=== PATIENT | female | born 1995 | race Hispanic/Latino ===

== ENCOUNTER 2021-05-22 15:47 | Emergency (ER) | payer SELFPAY ==
[~2021-05-22] VITALS: Ht 157.5 cm; Wt 86.2 kg
[2021-05-22 18:13] VITALS: BP 108/60
[2021-05-22] MEDS ORDERED: HYDROCODONE/ACETAMINOPHEN 10/325 MG TAB PO ONE (18:45)
[2021-05-22 18:58] LABS: BASOPHILS % (AUTO) 0.2 % (0.0-5.0); EOSINOPHILS % (AUTO) 1.1 % (0.0-8.0); HEMATOCRIT 38.8 % (36-48); LYMPHOCYTES % (AUTO) 21.6 % (21.0-51.0); MEAN CORPUSCULAR HEMOGLOBIN 25.8 pg (27.0-33.0); MEAN CORPUSCULAR VOLUME 80.7 fL (79-99); MONOCYTES % (AUTO) 5.1 % (3.0-13.0); NEUTROPHILS % (AUTO) 71.8 % (40.0-77.0); PLATELET COUNT (AUTO) 288 K/uL (130-400); RED BLOOD CELL COUNT(AUTO) 4.81 MIL/uL (4.00-5.50); RED CELL DISTRIBUTION WIDTH 15.9 % (11.0-15.5); WHITE BLOOD COUNT (AUTO) 14.5 K/uL (4.8-10.8)
[2021-05-22 19:06] LABS: CREATININE 0.5 mg/dL (0.5-1.5); POTASSIUM 3.6 mmol/L (3.5-5.1)
[2021-05-22 19:11] LABS: ALBUMIN 3.7 g/dL (3.5-5.0); BILIRUBIN,TOTAL 0.2 mg/dL (0.2-1.0)
[2021-05-22 19:16] LABS: APPEARANCE,URINE Cloudy (CLEAR); BILIRUBIN,URINE Negative (NEGATIVE); COLOR,URINE Yellow (YELLOW); GLUCOSE, URINE (UA) Negative (NEGATIVE); KETONES,URINE Negative (NEGATIVE); LEUKOCYTE ESTERASE ,URINE Moderate (NEGATIVE); NITRATE,URINE Negative (NEGATIVE); OCCULT BLOOD,URINE Large (NEGATIVE); PH,URINE 6.5 (5.0-8.0); PROTEIN,URINE POS 2+ mg/dL (NEGATIVE)
[2021-05-22 19:25] LABS: BACTERIA,URINE Rare /HPF (None Seen); RBC,URINE 26-50 /HPF (0-1); SQUAMOUS EPITHELIAL CELL,UR Rare /HPF (0-2); WBC,URINE 26-50 /HPF (0-1)
[2021-05-22] MEDS ORDERED: CEFTRIAXONE 1G VIAL IM STA (20:21)
[2021-05-22] MEDS ORDERED: PHENAZOPYRIDINE HCL 200 MG TABLET PO STA (20:21)
[2021-05-22] MEDS ORDERED: PHEN-847 PO (20:27)
[2021-05-22] MEDS ORDERED: CEPH500B PO (20:27)
[2021-05-22] MEDS ORDERED: LIDOCAINE HCL-MPF 1% 2ML VIAL ONE (20:41)
[2021-05-22 21:19] VITALS: BP 112/72
== END 2021-05-22 16:40 | disposition home or self-care (01) ==
LOC: EDH 15:47
DX: N39.0 Urinary tract infection, site not specified (principal); R31.9 Hematuria, unspecified; Z90.710 Acquired absence of both cervix and uterus
CPT/HCPCS: 36415; 76856; 80053; 81001; 85025; 87077; 87088; 87186; 96372; 99284; J0696; J3490

== ENCOUNTER 2022-02-26 11:01 | Emergency (ER) | payer OTHER ==
[~2022-02-26] VITALS: Ht 157.5 cm; Wt 81.6 kg
[~2022-02-26 11:01] MED LIST: CEPH500B PO; PHEN-847 PO
[2022-02-26 11:05] VITALS: BP 116/70
[2022-02-26 12:08] LABS: APPEARANCE,URINE Cloudy (CLEAR); BILIRUBIN,URINE Negative (NEGATIVE); COLOR,URINE Dark Yellow (YELLOW); GLUCOSE, URINE (UA) Negative (NEGATIVE); KETONES,URINE 15 mg/dL (NEGATIVE); LEUKOCYTE ESTERASE ,URINE Large (NEGATIVE); NITRATE,URINE Negative (NEGATIVE); OCCULT BLOOD,URINE Negative (NEGATIVE); PH,URINE 7.5 (5.0-8.0); PROTEIN,URINE POS 1+ mg/dL (NEGATIVE)
[2022-02-26 12:10] LABS: BASOPHILS % (AUTO) 0.2 % (0.0-5.0); EOSINOPHILS % (AUTO) 0.2 % (0.0-8.0); HEMATOCRIT 40.8 % (36-48); MEAN CORPUSCULAR HEMOGLOBIN 26.8 pg (27.0-33.0); MEAN CORPUSCULAR HGB CONC 32.6 g/dL (32.0-36.0); MEAN CORPUSCULAR VOLUME 82.1 fL (79-99); MONOCYTES % (AUTO) 4.1 % (3.0-13.0); NEUTROPHILS % (AUTO) 76.3 % (40.0-77.0); PLATELET COUNT (AUTO) 327 K/uL (130-400); RED BLOOD CELL COUNT(AUTO) 4.97 MIL/uL (4.00-5.50); RED CELL DISTRIBUTION WIDTH 14.8 % (11.0-15.5); WHITE BLOOD COUNT (AUTO) 12.2 K/uL (4.8-10.8)
[2022-02-26 12:25] LABS: BACTERIA,URINE Few /HPF (None Seen); SQUAMOUS EPITHELIAL CELL,UR Many /HPF (0-2)
[2022-02-26 12:26] LABS: CREATININE 0.6 mg/dL (0.5-1.5); POTASSIUM 3.6 mmol/L (3.5-5.1)
[2022-02-26 12:31] LABS: ALBUMIN 3.9 g/dL (3.5-5.0); BILIRUBIN,TOTAL 0.5 mg/dL (0.2-1.0); TOTAL PROTEIN, SERUM 8.5 g/dL (6.0-8.3)
[2022-02-26] MEDS ORDERED: FLUCONAZOLE 100 MG TAB PO ONE ×2 (13:00→13:30)
[2022-02-26] MEDS ORDERED: CEFTRIAXONE 1G VIAL IM ONE (13:00)
[2022-02-26] MEDS ORDERED: AZITHROMYCIN 250 MG TABLET PO ONE (13:00)
[2022-02-26] MEDS ORDERED: LIDOCAINE HCL-MPF 1% 2ML VIAL ONE (13:21)
[2022-02-26] MEDS ORDERED: LIDOCAINE HCL-MPF 1% 2ML VIAL IV SCH (13:30)
[2022-02-26] MEDS ORDERED: FLUC150T PO (14:24)
[2022-02-26] MEDS ORDERED: METR375C2 PO (14:24)
[2022-02-26] MEDS ORDERED: DOXY-336 PO (14:24)
== END 2022-02-26 14:37 | disposition home or self-care (01) ==
LOC: EDH 11:01
DX: N39.0 Urinary tract infection, site not specified (principal); N73.9 Female pelvic inflammatory disease, unspecified; B37.9 Candidiasis, unspecified
CPT/HCPCS: 36415; 80053; 81001; 85025; 87088; 87210; 87486; 87797; 96372; 99284; J0696; J3490

== ENCOUNTER 2024-04-29 17:42 | Emergency (ER) | payer OTHER ==
[~2024-04-29] VITALS: Ht 160 cm; Wt 83.9 kg
[~2024-04-29 17:42] MED LIST changes: +AMOX500C2 PO; +DOXY100C61 PO; +FLUC150T PO; +METR375C2 PO
[2024-04-29 17:43] VITALS: BP 138/84; PULSE 88; RESP 20
[2024-04-29] MEDS: LIDOCAINE HCL 1% 20 ML VIAL INJ SCH (18:01)
[2024-04-29] MEDS: ACETAMINOPHEN 500 MG TABLET PO ONE (18:02)
[2024-04-29] MEDS: TETANUS/DIPHTHERIA TOXOID [ADULT] 0.5 ML VIAL IM ONE (18:03)
[2024-04-29] MEDS ORDERED: IBUP-2077 PO (18:57)
[2024-04-29] MEDS ORDERED: CEPH500B PO (18:57)
[2024-04-29] MEDS: CEPHALEXIN 500 MG CAPSULE PO SCH (19:01)
== END 2024-04-29 19:03 | disposition home or self-care (01) ==
LOC: EDH 17:42
DX: S81.011A Laceration without foreign body, right knee, initial encounter (principal); Z90.710 Acquired absence of both cervix and uterus; Y08.89XA Assault by other specified means, initial encounter; Y93.89 Activity, other specified; Y92.89 Other specified places as the place of occurrence of the external cause; Y99.8 Other external cause status
CPT/HCPCS: 12002; 73562; 90471; 90714

== ENCOUNTER 2025-04-03 11:01 | Emergency (ER) | payer SELFPAY ==
[~2025-04-03] VITALS: Ht 157.5 cm; Wt 83.9 kg
[~2025-04-03 11:01] MED LIST changes: +DOXY-466 PO; -DOXY100C61 PO; +IBUP-2077 PO
[2025-04-03 11:49] LABS: BASOPHILS # (AUTO) 0.02 K/uL (0.00-0.20); BASOPHILS % (AUTO) 0.2 % (0.0-5.0); EOSINOPHILS # (AUTO) 0.03 K/uL (0.00-0.70); EOSINOPHILS % (AUTO) 0.3 % (0.0-8.0); IMMATURE GRANULOCYTE ABSOLUTE 0.05 K/uL (0-1); LYMPHOCYTES # (AUTO) 0.6 K/uL (1.0-4.8); LYMPHOCYTES % (AUTO) 5.3 % (21.0-51.0); MEAN CORPUSCULAR HEMOGLOBIN 27.8 pg (27.0-33.0); MEAN CORPUSCULAR HGB CONC 33.2 g/dL (32.0-36.0); MEAN CORPUSCULAR VOLUME 83.7 fL (79-99); MONOCYTES # (AUTO) 0.2 K/uL (0.1-1.0); NEUTROPHILS # (AUTO) 9.9 K/uL (1.8-7.7); NEUTROPHILS % (AUTO) 91.7 % (40.0-77.0); PLATELET COUNT (AUTO) 304 K/uL (130-400); RED BLOOD CELL COUNT(AUTO) 5.26 MIL/uL (4.00-5.50); WHITE BLOOD COUNT (AUTO) 10.7 K/uL (4.8-10.8)
[2025-04-03 11:57] LABS: CREATININE 0.7 mg/dL (0.5-1.0); POTASSIUM 3.8 mmol/L (3.5-5.1)
[2025-04-03 12:01] LABS: BILIRUBIN,DIRECT 0.1 mg/dL (0.0-0.3); BILIRUBIN,TOTAL 0.4 mg/dL (0.2-1.0); TOTAL PROTEIN, SERUM 8.2 g/dL (6.0-8.3)
[2025-04-03 12:43] LABS: APPEARANCE,URINE CLOUDY (CLEAR); BILIRUBIN,URINE NEGATIVE (NEGATIVE); COLOR,URINE YELLOW (YELLOW); GLUCOSE, URINE (UA) NEGATIVE (NEGATIVE); KETONES,URINE 40 mg/dL (NEGATIVE); LEUKOCYTE ESTERASE ,URINE NEGATIVE Leu/uL (NEGATIVE); NITRATE,URINE NEGATIVE (NEGATIVE); PROTEIN,URINE 50 mg/dL (NEGATIVE)
[2025-04-03 12:46] LABS: ADD UA MICROSCOPIC YES
[2025-04-03] MEDS: ondanSETRON 4MG INJ IVP STA (12:46)
[2025-04-03] MEDS: 0.9%NACL 1000ML 1,000 ML IV STA (12:46)
[2025-04-03] MEDS: ketOROlac 15MG/ML VIAL (15MG/ML) IV ONE (12:46)
[2025-04-03] MEDS: FAMOTIDINE 20MG VIAL IV ONE (12:46)
[2025-04-03 12:52] LABS: AMPHET/METH SCREEN,URINE NEGATIVE (NEGATIVE); BARBITURATE SCREEN, URINE NEGATIVE (NEGATIVE); BENZODIAZEPINES SCREEN,URINE NEGATIVE (NEGATIVE); CANNABINOID SCREEN,URINE POSITIVE (NEGATIVE); COCAINE SCREEN,URINE NEGATIVE (NEGATIVE); OPIATE SCREEN,URINE NEGATIVE (NEGATIVE); PHENCYCLIDINE SCREEN,URINE NEGATIVE (NEGATIVE)
[2025-04-03 13:03] LABS: MUCUS,URINE FEW LPF (None Seen); SQUAMOUS EPITHELIAL CELL,UR MOD /HPF (0-2)
[2025-04-03] MEDS ORDERED: ONDA-243 PO (13:07)
--- NOTE | 2025-04-03 13:09 | ERN ---
ED Note History of Present Illness Stated Complaint: VOMITTING,CHILLS,EARACHE Chief Complaint: Abdominal Pain Time Seen by MD: 11:04 Time Seen by Midlevel: 11:06 Dictation: 29 y/o female c/o nausea and vomiting, and " reflux" onset last night. Allergies: Coded Allergies: No Known Drug Allergies (Verified Allergy, 02/07/14) Home Meds Active Scripts Ondansetron (Ondansetron Odt) 4 Mg Tab.rapdis, 4 MG PO Q6HPRN PRN for nausea for 3 Days, #12 TAB 0 Refills Prov:CHON KRISHNAMURTHY [employer] 04/03/25 Ibuprofen (Ibuprofen 800 mg Tab) 800 Mg Tab, 800 MG PO Q8H PRN for fever or pain, #30 TAB 0 Refills Prov:AMY HEATH [employer]GER 04/29/24 Cephalexin Monohydrate (Keflex) 500 Mg Cap, 500 MG PO TID for 7 Days, #21 CAP Prov:AMY HEATH NP 04/29/24 Amoxicillin (Amoxicillin) 500 Mg Capsule, 500 MG PO TID for 7 Days, #21 CAP Prov:LIZBETH COATS MD 08/10/22 Fluconazole (Diflucan) 150 Mg Tablet, 1 TAB PO every other day for 2 Days, #2 TAB 0 Refills Prov:JACKELYN FRANCE 02/26/22 Doxycycline Monohydrate (Doxycycline Monohydrate) 100 Mg Capsule, 1 CAP PO BID for 10 Days, #20 CAP 0 Refills Prov:JACKELYN FRANCE 02/26/22 Metronidazole (Flagyl) 375 Mg Capsule, 500 MG PO TID for 7 Days, #21 CAP Prov:JACKELYN FRANCE 02/26/22 Phenazopyridine HCl (Pyridium) 200 Mg Tab, 200 MG PO TIDPC, #9 TAB TAKE WITH FOOD TO PREVENT STOMACH UPSET. Prov:JACKELYN FRANCE 05/22/21 Cephalexin Monohydrate (Keflex) 500 Mg Cap, 500 MG PO TID for 7 Days, #21 CAP Prov:JACKELYN FRANCE 05/22/21 Past Medical History Past Medical History: Diabetes-Type II Additional Past Medical Hx: Obesity Surgical History: Hysterectomy, Family History: Negative Social History: Negative History: Not Applicable Review of System Dictation Constitutional: Negative for fever,chills, and weight loss Eyes: Negative for injury, pain,redness, and discharge ENT: Negative for injury,pain or swelling Cardiovascular: Negative for chest pain, palpitations, and edema Respiratory: Negative for shortness of breath, cough, and wheezing, Abdomen/GI: Negative for abdominal pain, nausea, vomiting, no diarrhea Back: Negative for injury and pain : Negative for injury, bleeding and discharge MS/Extremity: Negative for injury and deformity Skin: Negative for rash, and discoloration Neuro: Negative for headache, weakness, numbness, tingling, and seizure Psych: Negative for suicide ideation, homicidal ideation, and hallucinations Review of Systems: was completed Initial Vital Sign VS Vital Signs Date Time Temp Pulse Resp B/P (MAP) Pulse Ox O2 Delivery O2 Flow Rate FiO2 04/03/25 11:06 98.1 93 16 127/64 96 Room Air 0 04/03/25 12:31 21 Physical Exam Dictation General: awake, alert, NAD Head/Face: Normocephalic, atraumatic Eyes: PERRL, EOMI, vision at baseline ENT: oral cavity clear, TMs clear, no signs of infection Neck: Trachea midline, supple, no nuchal rigidity Cardiovascular: RRR, normal S1/S2, No MRGs, no JVD Respiratory: CTAB, no respiratory distress, No rales or wheezes Abdomen: Soft, non-tender, non-distended, normal bowel sounds, no guarding or rebound. Skin: Warm, dry, normal turgor, no rash MS/Extremity: Pulses equal, no cyanosis, neurovascular intact, FROM Neuro: COAx4, GCS 15, strength 5/5, CN 2-12 intact, normal cerebellar exam, normal gait, Psych: Normal behavior, mood, and affect normal Results (Laboratory/Radiology) Laboratory/Radiology Laboratory Tests Test 04/03/25 11:41 04/03/25 12:22 White Blood Count 10.7 K/uL (4.8-10.8) Red Blood Count 5.26 MIL/uL (4.00-5.50) Hemoglobin 14.6 g/dL (12.0-16.0) Hematocrit 44.0 % (36-48) Mean Corpuscular Volume 83.7 fL (79-99) Mean Corpuscular Hemoglobin 27.8 pg (27.0-33.0) Mean Corpuscular Hemoglobin Concent 33.2 g/dL (32.0-36.0) Red Cell Distribution Width 14.0 % (11.0-15.5) Platelet Count 304 K/uL (130-400) Mean Platelet Volume 10.1 fL (7.5-10.5) Immature Granulocyte % (Auto) 0.5 % (0-1) Neutrophils (%) (Auto) 91.7 % (40.0-77.0) H Lymphocytes (%) (Auto) 5.3 % (21.0-51.0) L Monocytes (%) (Auto) 2.0 % (3.0-13.0) L Eosinophils (%) (Auto) 0.3 % (0.0-8.0) Basophils (%) (Auto) 0.2 % (0.0-5.0) Neutrophils # (Auto) 9.9 K/uL (1.8-7.7) H Lymphocytes # (Auto) 0.6 K/uL (1.0-4.8) L Monocytes # (Auto) 0.2 K/uL (0.1-1.0) Eosinophils # (Auto) 0.03 K/uL (0.00-0.70) Basophils # (Auto) 0.02 K/uL (0.00-0.20) Absolute Immature Granulocyte (auto 0.05 K/uL (0-1) Nucleated Red Blood Cells 0.0 % (0.0-0.19) White Cell Morphology Comment See comments Sodium Level 140 mmol/L (136-145) Potassium Level 3.8 mmol/L (3.5-5.1) Chloride Level 103 mmol/L (101-111) Carbon Dioxide Level 26 mmol/L (21-32) Blood Urea Nitrogen 12 mg/dL (7-18) Creatinine 0.7 mg/dL (0.5-1.0) Glomerular Filtration Rate Calc 119 mL/min (>90) Random Glucose 121 mg/dL (70-105) H Total Calcium 8.4 mg/dL (8.5-10.1) L Total Bilirubin 0.4 mg/dL (0.2-1.0) Direct Bilirubin 0.1 mg/dL (0.0-0.3) Aspartate Amino Transf (AST/SGOT) 21 U/L (10-37) Alanine Aminotransferase (ALT/SGPT) 23 U/L (12-78) Alkaline Phosphatase 70 U/L (50-136) Total Protein 8.2 g/dL (6.0-8.3) Albumin 4.0 g/dL (3.5-5.0) Lipase 20 U/L (16-77) Urine Color YELLOW (YELLOW) Urine Appearance CLOUDY (CLEAR) H Urine pH 6.0 (5.0-8.0) Urine Specific [place] 1.034 (1.001-1.031) Urine Protein 50 mg/dL (NEGATIVE) H Urine Glucose (UA) NEGATIVE mg/dL (NEGATIVE) Urine Ketones 40 mg/dL (NEGATIVE) H Urine Occult Blood +- (TRACE) (NEGATIVE) H Urine Nitrate NEGATIVE (NEGATIVE) Urine Bilirubin NEGATIVE mg/dL (NEGATIVE) Urine Urobilinogen 2.0 mg/dL (0.2-1.0) H Urine Leukocyte Esterase NEGATIVE Wai/uL Urine RBC 2-5 /HPF (0-1) H Urine WBC 2-5 /HPF (0-1) H Urine Squamous Epithelial Cells MOD /HPF (0-2) Urine Amorphous Crystals (Auto) RARE /LPF (None Seen) Urine Bacteria None /HPF (None Seen) Urine Opiates Screen NEGATIVE (NEGATIVE) Urine Barbiturates Screen NEGATIVE (NEGATIVE) Urine Phencyclidine Screen NEGATIVE (NEGATIVE) Urine Amphetamines Screen NEGATIVE (NEGATIVE) Urine Benzodiazepines Screen NEGATIVE (NEGATIVE) Urine Cocaine Screen NEGATIVE (NEGATIVE) Urine Marijuana (THC) Screen POSITIVE (NEGATIVE) H Labs Reviewed?: Yes ED Course ED Course Orders Procedure Category Date Status Time Cbc With Differential LAB 04/03/25 Complete 11:08 Basic Metabolic Panel LAB 04/03/25 Complete 11:08 Hepatic Function Panel LAB 04/03/25 Complete 11:08 Lipase LAB 04/03/25 Complete 11:08 Urinalysis Profile LAB 04/03/25 Complete 11:08 Drug Screen Urine LAB 04/03/25 Complete 11:08 0.9%Nacl 1000ml (Ns PHA 04/03/25 Complete 1000ml) 11:08 Ondansetron 4mg Inj PHA 04/03/25 Complete (Zofran 4mg Inj) 11:08 Famotidine 20mg Vial PHA 04/03/25 Complete (Pepcid 20mg Vial) 12:30 Ketorolac PHA 04/03/25 Complete Tromethamine 15mg/Ml 13:00 Current Medications Medications (Trade) Dose Ordered Sig/Elaine Route PRN Reason Start Time Stop Time Status Last Admin Dose Admin Famotidine (Pepcid 20mg Vial) 20 mg ONCE ONCE IV 04/03/25 12:30 04/03/25 12:31 DC 04/03/25 12:46 Ketorolac Tromethamine (toRADol) 15 mg ONCE ONCE IV 04/03/25 13:00 04/03/25 13:01 DC 04/03/25 12:46 Ondansetron HCl (zoFRAN 4MG INJ) 4 mg ONCE STAT IVP 04/03/25 11:08 04/03/25 11:11 DC 04/03/25 12:46 Sodium Chloride 1,000 ml @ 1,000 mls/hr Q1H STAT IV 04/03/25 11:08 04/03/25 12:07 DC 04/03/25 12:46 Vital Signs Date Time Temp Pulse Resp B/P (MAP) Pulse Ox O2 Delivery O2 Flow Rate FiO2 04/03/25 13:20 98.1 88 16 122/71 96 Room Air* 0 21 04/03/25 12:31 98.1 93 16 127/64 96 Room Air* 0 21 04/03/25 11:06 98.1 93 16 127/64 96 Room Air 0 Medical Decision Making MDM MDM: 29 y/o female c/o nausea and vomiting, and " reflux" onset last night. Blood work unremarkable. Toxicology positive for cannabinoids. Discussed with the patient that her symptoms could be related to her using marijuana. Educated to stop smoking weed and follow up with PCP in 1-2 days and return to the hospital as needed. Patient verbalized understanding, answered all questions. Differential diagnosis: GERD, gastroenteritis, marijuana abuse Rationale: Tests considered and ordered secondary to shared decision making include: Previous outside records reviewed: Old ER visits. Risk of complication and/or morbidity or mortality of patient management: None Medications-Per medication reconciliation Need for hospitalization: Patient does not meet criteria for hospitalization. Need for emergency major/minor surgery: No There are no social concerns with this patient. Prescription drug management Prescriptions will include symptomatic care Patient's prior external medical records from other ER visits were reviewed by me as indicated. Prior testing and results from previous visits were reviewed. Prior tests were taken into account with medical decision making and resource utilization, independent historian/historians were used to obtain complete medical history. I independently interpreted the test that were performed, results were reviewed by me and considered findings on radiology if ordered. Medical management and examination interpretation discussions were had by me with other qualified healthcare professionals as indicated for the patient's care. DX & DISP Disposition: Discharge Decision to Admit Date: April 03, 2025 Departure Impression: Primary Impression: Hyperemesis Additional Impression: Cannabinoid hyperemesis syndrome Condition: Stable Scripts Ondansetron (Ondansetron Odt) 4 Mg Tab.rapdis 4 MG PO Q6HPRN PRN for nausea for 3 Days, #12 TAB 0 Refills Prov: CHON KRISHNAMURTHY [employer] MANAGER 04/03/25 Additional Instructions: Stop smoking marijuana. Follow up with PCP in 1-2 days. Return for worsening symptoms. Referrals: SELF,REFERRAL (PCP) Time of Disposition: 13:07 I have reviewed the case, and I agree with, Diagnosis and Plan CHON KRISHNAMURTHY NP April 03, 2025 13:09 SANDEE LÓPEZ DO April 04, 2025 08:17
[2025-04-03 13:20] VITALS: BP 122/71; PULSE 88; RESP 16; TEMP 98.1; O2SAT 96
== END 2025-04-03 13:23 | disposition home or self-care (01) ==
LOC: EEVIPCON 11:01 → EDH 11:01
DX: R11.10 Vomiting, unspecified (principal); F12.90 Cannabis use, unspecified, uncomplicated; E11.9 Type 2 diabetes mellitus without complications; E66.9 Obesity, unspecified; Z90.710 Acquired absence of both cervix and uterus
CPT/HCPCS: 99284; 96374; 96375; 80076; 80048; 80305; 83690; 85025; 36415; 81001; J1885; J3490; J7030; J2405